=== PATIENT | female | born 1995 | race Caucasian/White ===

== ENCOUNTER 2018-12-01 11:22 | Emergency (ER) | payer MEDICAID, SELFPAY ==
--- NOTE | 2018-12-01 12:03 | NUR.NOTE ---
pt states that she developed nausea, vomiting and headache starting that has not resolved. pt has had a fever of 99.8. pt had not taken any medication to alleviate symptoms
[2018-12-01 12:05] VITALS: BP 99/72; PULSE 74; RESP 17; TEMP 37.7; O2SAT 96
--- NOTE | 2018-12-01 12:36 | ED.GENADUL_ITS ---
Discharge Plan Disposition Patient Disposition: HOME Condition: Improving Discharge Details Chief Complaint: Nausea/Vomit/Diar Clinical Impression: Vomiting, Headache Primary Care Provider: Rick Ruiz ED Provider: Oanh Herrmann Home Meds and New Rx's Prescriptions: New prochlorperazine maleate [Compazine] 10 mg tablet 10 mg PO Q8H PRN (Reason: nausea and vomiting) Qty: 6 RF: 0 Continued sertraline [Zoloft] 100 MG tablet 100 mg PO DAILY Qty: 1 RF: 0 Discharge Instructions Instructions: Acute Headache (ED), Acute Nausea and Vomiting (ED) Additional Instructions: Drink plenty of fluids and get plenty of rest. Alternate Tylenol and Motrin as needed and directed for pain. Take the Compazine as needed and directed for nausea and vomiting. Follow-up with your primary care doctor and neurologist for reevaluation. Return immediately to the emergency department any worsening or new concerning symptoms. Discharge Data Discharge Physician: Oanh Herrmann Medical Decision Making 22-year-old female with a history of migraines who presents with vomiting and headache for the past 3 days. Symptoms started with vomiting and then she developed headache with photophobia. Also with URI symptoms. No description of thunderclap headache making SAH unlikely. No complaint of fever or neck pain making meningitis less likely. Mom and patient state that she has had extensive workup for her migraines in the past including lumbar puncture and CT imaging all of which were negative. They are declining any imaging today at this time. Temp 99.8. Remainder vitals within normal limits. No focal deficits. No meningeal signs. Tenderness to palpation bilateral frontal sinuses, remainder of ENT exam within normal limits. Lungs clear to auscultation. Abdomen soft and nontender. Differential diagnosis includes influenza, gastroenteritis, viral syndrome, leading to headache associated dehydration, and possible leading to migraine. Patient states she cannot take p.o. meds due to her nausea and vomiting. Will place an IV, bolus IV fluids, Compazine, Benadryl, Toradol, urine and rapid influenza test. [id number] --rapid influenza negative. Urine test negative. Patient has been sleeping since she was given her medications and states she feels much better and is requesting to go home. She states her nausea is resolved and her headache is significantly improved. Discussed again that symptoms likely due to a GI illness leading to dehydration and subsequent headache/migraine. Discussed again that I do not think her symptoms appear c/w meningitis or any acute neurological process, and they are agreeable and do not see any indication for CT imaging at this time. We will send home with a prescription for Compazine. She is instructed to follow with the primary care doctor and neurologist for reevaluation. She is instructed to increase plenty of fluids, rest, and compazine prn for possible GI illness. Medical Records Medical records reviewed: Yes I reviewed the patient's medical records. Lab Data Lab results reviewed: Yes I reviewed the patient's lab results. Urine test negative Rapid influenza negative HPI General Mode of arrival: ambulatory . Date/Time Provider Initiated Documentation: 12/01/18 12:06 . Limitations to Documentation: no limitations . Information obtained by: patient . HPI Narrative: Patient is a 22-year-old female who presents the ED with a complaint of vomiting and headache for the past 3 days. Patient states her symptoms started first with vomiting 3 days ago occurring every 2 hours, mainly clear and bile. She states the headache started yesterday, which she states feels like tightness and like rubber bands are wrapped around my head , 06/25 and is associated with sensitivity to light. She states she has been diagnosed with migraines in the past and states her headache feels similar but more intense. She denies any known fever or neck pain but does also admit to sore throat, ear pain, coughing with green sputum, body aches. She states she did not receive the flu shot this year. She states she has not taken any medication for her symptoms because she is unable to keep anything down. Related Data Home Medications Medication Instructions Recorded Confirmed sertraline [Zoloft] 100 mg PO DAILY #1 tab-cap 05/15/14 12/01/18 prochlorperazine maleate 10 mg PO Q8H PRN #6 tab 12/01/18 [Compazine] Previous Rx's Medication Instructions Recorded prochlorperazine maleate 10 mg PO Q8H PRN #6 tab 12/01/18 [Compazine] Allergies Allergy/AdvReac Type Severity Reaction Status Date / Time No Known Allergies Allergy Unverified 12/01/18 12:08 General Stated Complaint: Nausea/Vomit/Diar OFELIA: 3 Review of Systems Review of Systems All systems reviewed & are unremarkable except as noted in HPI and below Constitutional Reports as per HPI, Denies chills, Denies fever(s) and Reports headache(s) Eyes Denies blurry vision ENT Denies dizziness, Reports headache(s), Reports nasal congestion, Reports nasal discharge, Reports sore throat and Denies throat swelling Cardiovascular Denies chest pain and Denies dyspnea Respiratory Reports cough and Denies dyspnea Gastrointestinal Denies abdominal pain, Denies diarrhea and Reports vomiting Genitourinary Denies hematuria and Denies dysuria Musculoskeletal Denies back pain and Denies numbness Integumentary/Breasts Denies lesions and Denies rash Neurologic Denies dizziness, Reports headache(s), Denies focal weakness and Denies numbness Allergic/Immunologic Denies throat swelling PFS Medical History Migraine (Chronic) Surgical History No significant past surgical history (Acute) Social History Smoking and Tabacco status: Never alcohol intake: never substance use type: marijuana Exam Const General: cooperative and healthy appearing Orientation: alert and awake HENMT Head: normal to inspection Ears: hearing grossly normal bilaterally, external ears normal and TM's normal bilaterally General nose exam: external nose normal Face and sinus: normal facial exam and sinus tenderness frontal (bilateral ) Mouth: oral mucosae normal Teeth and gingiva: dentition normal Throat: posterior oropharynx normal Eyes General: appearance normal, both eyes and all related structures Eyelids: eyelids normal Pupils: PERRL EOM: EOM intact bilaterally Neck Neck: normal visual inspection Lymphatic: no lymphadenopathy noted Chest Chest: normal inspection of the chest Resp Effort & Inspection: normal respiratory effort and able to speak in complete sentences Auscultation: clear to auscultation bilaterally Cardio Rate: regular rate Rhythm: regular rhythm GI Inspection: normal to inspection Palpation: soft, not firm, no guarding, no hepatosplenomegaly, no masses and nontender Auscultation: normal bowel sounds Skin General skin exam: no rashes or lesions noted Neuro General: alert, awake, oriented x3, moves all extremities, no meningeal signs, no focal motor deficits and CN's II-XI intact bilaterally Cognition: normal cognition Speech: speech normal Gait: normal gait Motor: muscle tone normal throughout and strength 5/5 throughout Sensory Exam: no sensory deficits noted Extrem General: normal to inspection, full ROM and normal capillary refill Psych Appearance: grossly normal Mental Status: mental status grossly normal Speech and Movement: speech and movement normal Affect: normal affect Thought Process: normal Course Vital Signs Temperature 99.8 F H 12/01/18 12:05 Pulse 74 12/01/18 12:05 Respiratory Rate 17 12/01/18 12:05 Blood Pressure 99/72 L 12/01/18 12:05 Pulse Oximetry 96 12/01/18 12:05 Temperature 99.8 F H 12/01/18 12:05 Temperature Source Oral 12/01/18 12:05 Pulse 74 12/01/18 12:05 Respiratory Rate 17 12/01/18 12:05 Respiratory Effort 12/01/18 12:07 Blood Pressure 99/72 L 12/01/18 12:05 Blood Pressure Position Sitting 12/01/18 12:05 Pulse Oximetry 96 12/01/18 12:05 Oxygen Delivery Method Room Air 12/01/18 12:05 Oxygen Flow Rate 0 12/01/18 12:05 Pain Level 10 12/01/18 12:05
[2018-12-01] MEDS: diphenhydrAMINE 50 MG/ML VIAL 25 MG IVP (12:47)
[2018-12-01] MEDS: Ketorolac 30 MG/ML VIAL IVP (12:47)
[2018-12-01] MEDS: Normal Saline 1,000 ML 1000 ML IV (12:48)
[2018-12-01] MEDS: Prochlorperazine 10 MG/2 ML VIAL IVP (12:48)
[2018-12-01 15:17] VITALS: BP 105/85; PULSE 76; RESP 18; TEMP 37; O2SAT 97
[2018-12-01 15:24] VITALS: BP 105/85; PULSE 76; RESP 18; TEMP 37; O2SAT 97
== END 2018-12-01 15:33 | disposition home or self-care (01) ==
PROVIDERS: Emergency Provider Physician Assistant; PCP Pediatrics
DX: R11.10 Vomiting, unspecified (principal); R51 Headache
CPT/HCPCS: 81025; 87449; 96361; 96374; 96375; 99284; J0780; J1200; J1885

== ENCOUNTER 2020-11-18 10:24 | Emergency (ER) | payer MEDICAID, SELFPAY ==
[2020-11-18 10:29] VITALS: BP 125/63; PULSE 70; RESP 20; TEMP 36.3; O2SAT 98
--- NOTE | 2020-11-18 10:30 | ED.GENADUL_ITS ---
Discharge Plan Disposition Patient Disposition: HOME Condition: Stable Discharge Details Clinical Impression: Bruising of wrist Primary Care Provider: Rick Ruiz ED Provider: Hasmukh Hicks Home Meds and New Rx's Prescriptions: Continued sertraline [Zoloft] 100 MG tablet 100 mg PO DAILY Qty: 1 RF: 0 Nexplanon 68 mg Implant 1 implant SUBDERMAL ONCE RF: 0 Discharge Instructions Instructions: Contusion in Adults (ED), Hematoma (ED) Additional Instructions: Examination is most consistent with bruising. Ultrasound and laboratory values do not reveal any obvious emergent process. Please watch for new or worsening symptoms and return to the ER for any concerns. [id number] Tylenol and/or Motrin as directed for discomfort. Cool compresses as tolerated. Medical Decision Making 24-year-old [id number]-[id number] female presents with atraumatic left wrist and forearm swelling, discomfort, ecchymosis. Clinically she appears well, nontoxic. Clinically I believe this to be a contusion, likely mild trauma that was unnoticed. Given she denies any bleeding from her gums, petechiae rashes, heavy menses, etc. highly unlikely hematological disorder. Given there is no t rauma, no bony point tenderness, no clear indication for x-ray imaging. Given her family history of DVT and her atypical presentation I do believe obtaining ultrasound, CBC, CMP and coags is reasonable but I do have a low suspicion they will be abnormal. Laboratory values unremarkable for obvious emergent process. Ultrasound of left upper extremity unremarkable for DVT. Discussed findings with patient. She is relieved. Has no additional questions or concerns and is comfortable discharge. Medical Records Medical records reviewed: Yes I reviewed the patient's medical records. Lab Data Lab results reviewed: Yes I reviewed the patient's lab results. Lab results narrative: Laboratory Tests Range/Units 11/18/20 11/18/20 11/18/20 11:11 11:11 11:11 WBC (4.4-10.8) 10^3/uL 6.49 RBC (3.93-5.22) 10^6/uL 3.69 L Hgb (11.2-15.7) g/dL 10.9 L Hct (36.0-46.0) % 33.5 L MCV (80-95) fL 90.8 MCH (27.0-33.0) pg 29.5 MCHC (32.0-36.0) % 32.5 RDW (11.7-14.6) % 13.6 Plt Count (130-400) 10^3/uL 273 MPV (8.0-11.0) fL 9.7 Immature Gran % 0.2 Neutrophils % 60.1 Lymphocytes % 34.4 Monocytes % 4.0 Eosinophils % 0.8 Basophils % 0.5 Nucleated RBC % % 0 Absolute Neutrophils (1.2-6.7) 10^3/uL 3.91 Absolute Lymphocytes (1.2-3.4) 10^3/uL 2.23 Absolute Monocytes (0.1-0.8) 10^3/uL 0.26 Absolute Eosinophils (0.0-0.7) 10^3/uL 0.05 Absolute Basophils (0.0-0.2) 10^3/uL 0.03 PT (9.3-11.0) sec 10.2 INR (0.9-1.1) 1.0 APTT (21.0-27.5) sec 25.1 Sodium (136-145) mmol/L 139 Potassium (3.5-5.1) mmol/L 3.9 Chloride (98-107) mmol/L 104 Carbon Dioxide (21.0-32.0) mmol/L 26.1 Anion Gap (3-11) mmol/L 8.9 BUN (7-18) mg/dL 12 Creatinine (0.55-1.02) mg/dL 0.6 Estimated GFR/1.73 m2 (mL/min/1.73m2) >= 60.00 Glucose (74-106) mg/dL 116 H Calcium (8.5-10.1) mg/dL 8.6 Total Bilirubin (0.2-1.0) mg/dL 0.3 AST (15-37) U/L 17 ALT (14-59) U/L 22 Alkaline Phosphatase (46-116) U/L 42 L Total Protein (6.4-8.2) g/dL 7.9 Albumin (3.4-5.0) g/dL 3.9 HPI General Mode of arrival: ambulatory . Date/Time Provider Initiated Documentation: 11/18/20 10:30 . Limitations to Documentation: no limitations . Information obtained by: patient . HPI Narrative: This is a 24-year-old female, vczus-vyyc-[id number], does have a Nexplanon subdermal implant. 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 The past 24 hours she noticed a bruise that is slightly swollen and tender to the left wrist and subsequently the bruising has spread up her arm. She denies any numbness, tingling, weakness. She denies easy bruising or bleeding. Denies irregular menstrual cycles. Denies gum bleeding when she brushes her teeth. She tells me that she assumes this is just a bruise but she has a positive family history of DVT and her family recommended coming to the ER. Related Data Home Medications Medication Instructions Recorded Confirmed sertraline [Zoloft] 100 mg PO DAILY #1 tab-cap 05/15/14 11/18/20 Nexplanon 1 implant SUBDERMAL ONCE 11/18/20 11/18/20 Allergies Allergy/AdvReac Type Severity Reaction Status Date / Time No Known Allergies Allergy Unverified 11/18/20 10:32 General OFELIA: 3 Review of Systems Constitutional Constitutional: Denies fever(s) and Denies weakness Cardiovascular Cardiovascular: Denies chest pain and Denies dyspnea Respiratory Respiratory: Denies dyspnea Musculoskeletal Musculoskeletal: Denies arthralgias, Denies numbness, Reports stiffness and Denies tingling Integumentary/Breasts Skin/Breast: Denies erythema Neurologic Neurologic: Denies numbness, Denies tingling and Denies weakness Hematologic/Lymphatic Hematologic/Lymphatic: Denies easy bleeding and Denies easy bruising [facility] Medical History Migraine Surgical History No significant past surgical history Social History Smoking/Tobacco Use Status: Never Smoking risk assessment performed?: Yes Alcohol Intake: never Drug use: Occasionally Substance use type: marijuana Do you feel safe at home: Yes Do you feel safe in your relationship?: Yes Exam Const General: cooperative, healthy appearing, comfortable and no acute distress Orientation: alert and awake [facility] Head: normal to inspection, normocephalic and atraumatic Eyes General: appearance normal, both eyes and all related structures Conjunctivae: conjunctivae normal Sclera: sclerae normal Neck Neck: normal visual inspection, full ROM, no meningeal signs, trachea midline and supple Resp Effort & Inspection: normal respiratory effort and able to speak in complete sentences Auscultation: clear to auscultation bilaterally Cardio Rate: regular rate Rhythm: regular rhythm Skin General skin exam: no rashes or lesions noted Neuro General: patient alert, patient awake, moves all extremities and no focal motor deficits Cognition: normal cognition Speech: speech normal Sensory Exam: no sensory deficits noted Extrem General: full ROM and capillary refill normal Left upper extremity: full ROM, normal capillary refill, shoulder/upper arm Details: inspection abnormal, axillary nerve sensory function normal and normal ROM; no tenderness and no swelling, elbow/forearm Details: tenderness, swelling, normal ROM, ecchymosis and distal pulses intact, wrist Details: tenderness, swelling, normal ROM, ecchymosis, normal vascular exam, radial pulse present and ulnar pulse present; no unusual warmth and hand Details: normal to inspection, normal capillary refill, neuromotor exam normal, neurosensory exam normal, tendon exam normal, vascular exam, normal ROM of fingers and no swelling; no tenderness and no ecchymosis Elbow/forearm/wrist images: 1. Diffuse mild swelling and ecchymosis. Skin is intact. Neuro, vascular, tendon intact. 2. An area of vertical darker ecchymosis. Without warmth. No tenderness. Simply an atypical pattern of ecchymosis. 3. An area of vertical darker ecchymosis. Without warmth. No tenderness. Simply an atypical pattern of ecchymosis. Psych Appearance: grossly normal Mental Status: mental status grossly normal
--- NOTE | 2020-11-18 10:45 | DI.US_ITS ---
EXAM: US UPPER EXTREMITY VENOUS LT CLINICAL HISTORY: Atraumatic bruising/pain/swelling, family hxDVT. TECHNIQUE: Ultrasound examination of the left upper extremity venous system(s) is performed using gr ayscale, color-flow, and spectral Doppler analysis. COMPARISON: No exams were available for comparison FINDINGS: The left internal jugular, axillary, subclavian, cephalic, basilic, brachial, radial, and ulnar veins are patent without evidence of thrombosis. There is edema seen in the soft tissues of the anterior left wrist corresponding to the area of bruising. Veins in the region show compression. IMPRESSION: No evidence of a left upper extremity DVT. DATA REPOSITORY:
[2020-11-18 11:27] LABS: Abs Immature Grans 0.01 10^3/uL (0.0-0.06); Absolute Basophil Count 0.03 10^3/uL (0.0-0.2); Absolute Eosinophil Count 0.05 10^3/uL (0.0-0.7); Absolute Lymphocyte Count 2.23 10^3/uL (1.2-3.4); Absolute Monocyte Count 0.26 10^3/uL (0.1-0.8); Absolute Neutrophil Count 3.91 10^3/uL (1.2-6.7); Basophils % 0.5; Eosinophils % 0.8; HCT 33.5 % (36.0-46.0); HGB 10.9 g/dL (11.2-15.7); Immature Grans % 0.2; Lymphocytes % 34.4; MCH 29.5 pg (27.0-33.0); MCHC 32.5 % (32.0-36.0); MCV 90.8 fL (80-95); MPV 9.7 fL (8.0-11.0); Neutrophils % 60.1; Nucleated RBC 0 %; Platelet Count 273 10^3/uL (130-400); RBC 3.69 10^6/uL (3.93-5.22); RDW 13.6 % (11.7-14.6); RDW-SD 46.2 fL; WBC 6.49 10^3/uL (4.4-10.8)
[2020-11-18 11:40] LABS: PTT Activated 25.1 sec (21.0-27.5); Prothrombin Time 10.2 sec (9.3-11.0)
[2020-11-18 11:59] LABS: ALT 22 U/L (14-59); AST 17 U/L (15-37); Albumin 3.9 g/dL (3.4-5.0); Alkaline Phosphatase 42 U/L (46-116); Anion Gap 8.9 mmol/L (3-11); BUN 12 mg/dL (7-18); Bilirubin, Total 0.3 mg/dL (0.2-1.0); CO2 26.1 mmol/L (21.0-32.0); CREATININE 0.6 mg/dL (0.55-1.02); Calcium 8.6 mg/dL (8.5-10.1); Chloride 104 mmol/L (98-107); Glucose 116 mg/dL (74-106); Potassium 3.9 mmol/L (3.5-5.1); Sodium 139 mmol/L (136-145); Total Protein 7.9 g/dL (6.4-8.2)
== END 2020-11-18 13:00 | disposition home or self-care (01) ==
PROVIDERS: Emergency Provider Physician Assistant; PCP Pediatrics
DX: S60.212A Contusion of left wrist, initial encounter (principal); X58.XXXA Exposure to other specified factors, initial encounter
CPT/HCPCS: 36415; 80053; 99284; 85025; 85610; 85730; 93971; 99283

== ENCOUNTER 2021-02-20 11:34 | Emergency (ER) | payer MEDICAID, SELFPAY ==
[2021-02-20 11:39] VITALS: BP 111/88; PULSE 73; RESP 18; TEMP 36.7; O2SAT 99
--- NOTE | 2021-02-20 11:51 | W.ED.GENAD ---
Discharge Plan Disposition Patient Disposition: HOME Condition: Good Discharge Details Clinical Impression: Injury of knee, left, Grade 1 injury of medial collateral ligament of left knee Primary Care Provider: Rick Ruiz ED Provider: Wilton Delaney Home Meds and New Rx's Prescriptions: Continued sertraline [Zoloft] 100 MG tablet 100 mg PO DAILY Qty: 1 RF: 0 Nexplanon 68 mg Implant 1 implant SUBDERMAL ONCE RF: 0 Discharge Instructions Instructions: Knee Sprain (ED), Hinged Knee Brace (ED) Additional Instructions: At this time your exam is very concerning for a medial collateral ligament injury. Please use the hinged knee brace at all times until you are reassessed by the workforce specialist. Take Tylenol, Motrin and ice as needed for pain. Remain nonweightbearing on your knee is much as possible with your crutches until you are reassessed by the workforce specialist. We have placed a referral with the orthopedic doctor, please follow-up with him when they contact you for an appointment time. If you notice any worsening of your symptoms, or any new symptoms such as vomiting, diarrhea, fever, chills, shortness of breath, chest pain, numbness, weakness, or fainting , please return immediately to the emergency department for reevaluation. As always, it was a pleasure participating in your medical care today. Referrals: Dakota Davis MD [ [facility] STAFF PHYSICIAN] - Chong Granados MD [ [facility] STAFF PHYSICIAN] - Medical Decision Making This is a pleasant 25-year-old female on Zoloft and Nexplanon who presents today for evaluation of left knee pain. 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 She is able to bear weight with mild to moderate pain, but has had a notable limp. She has taken Tylenol and Motrin without improvement. Aside for pain in the medial aspect of her knee she has no other complaints. She denies calf or femur pain, numbness or tingling, or any other complaints Physical exam demonstrates notable laxity on valgus stressing for the left knee in both straight leg and 25 degrees of flexion. On exam anterior and posterior drawer test at this time demonstrate no significant appreciable laxity. Varus stressing shows no laxity. Minimal tenderness over the medial aspect of the tibial plateau, but I suspect this is more so from tendon injury as it currently does not appear consistent with a tibial plateau fracture. We will get radiographs. Patient is notably active in general, she would much prefer a hinged knee brace over a knee immobilizer, I do feel that this is reasonable based on the current injury pattern that is clinically evident. 12:38 PM X-ray results per virtual radiology are negative for acute process. No evidence of fracture. Patient tolerates a hinged knee brace and crutches well. I had a long discussion with the patient about the importance of massage of the calf, regular movement and elevation to prevent DVT and blood clot. We went over these risk factors. Discussed the importance of close follow-up with the workforce specialist. Discussed red flags which to return including the importance of use of ice, Jama wrap, and elevation and Tylenol or Motrin. I have extensively reviewed the treatment plan and discharge instructions with the patient. I have addressed all patient concerns at this time. The patient was made aware of what symptoms to monitor for that would warrant a return to the emergency department. Discussed the plan with the patient, they demonstrate verbal understanding and agreement with our assessment and plan at this time. The documentation in this chart was dictated using [employer] dictation software. Please excuse any dictation errors. FINDINGS: Bones/joints: Normal. Soft tissues: Normal. IMPRESSION: No significant abnormality. Thank you for allowing us to participate in the care of your patient. Dictated and Authenticated by: Misael Lama MD 02/20/2021 12:27 PM Eastern Time ([place] & [place]) HPI General Date/Time Provider Initiated Documentation: 02/20/21 11:35. HPI Narrative: This is a pleasant 25-year-old female on Zoloft and Nexplanon who presents today for evaluation of left knee pain. 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 She is able to bear weight with mild to moderate pain, but has had a notable limp. She has taken Tylenol and Motrin without improvement. Aside for pain in the medial aspect of her knee she has no other complaints. She denies calf or femur pain, numbness or tingling, or any other complaints Related Data Home Medications Medication Instructions Recorded Confirmed sertraline [Zoloft] 100 mg PO DAILY #1 tab-cap 05/15/14 02/20/21 Nexplanon 1 implant SUBDERMAL ONCE 11/18/20 02/20/21 Allergies Allergy/AdvReac Type Severity Reaction Status Date / Time No Known Allergies Allergy Unverified 02/20/21 11:45 General Stated Complaint: Orthopedic OFELIA: 4 Review of Systems All systems reviewed & are unremarkable except as noted in HPI and below PFSH Medical History Migraine Surgical History No significant past surgical history Social History Smoking/Tobacco Use Status: Never Smoking risk assessment performed?: Yes Alcohol Intake: never Drug use: Occasionally Substance use type: marijuana Do you feel safe at home: Yes Do you feel safe in your relationship?: Yes Exam Narrative Exam Narrative: 1.Const: Well-nourished, Well-developed, appearing stated age 2.Eyes: PERRL, no conjunctival injection, and symmetrical lids. 3.ENT: Atraumatic external nose and ears. Moist MM. Neck: Symmetric, trachea midline, No thyromegaly. 4.CVS: +S1/S2, No murmurs or gallops. Peripheral pulses 2+ and equal in all extremities. Brisk capillary refill in all extremities. 5.RESP: Unlabored respiratory effort. Clear to auscultation bilaterally. No wheezes rales or rhonchi 6.GI: Soft, Nontender/Nondistended, No hepatosplenomegaly. No guarding or rebound. 7.MSK: The knee is stable to varus stressing, and notably unstable to valgus stressing for both straight leg and for 25 degrees of flexion. There appears to be notable laxity in comparison right knee. Mild bruising at the medial aspect of the left knee. Patellar grind test is negative. Glo test is positive for pain at the medial aspect albeit mild. Mild edema on the medial aspect of the. No ttp to the patella, or fibular head, minimal tenderness over the medial aspect of the tibial plateau, but not severe otherwise. Patient seems to demonstrate no significant laxity for anterior posterior drawer testing at this time. Distal exam demonstrates good capillary refill, good sensation, good dorsalis pedis and posterior tibial pulse/forced tube. No tenderness over the tibia or fibula, no tenderness over the femur 8.Skin: Warm, Dry. No rashes or lesions. 9.Neuro: center human resources manager II-XII grossly intact. Sensation grossly intact, no focal neurologic deficits. 10.Psych: (AAO) x3. Appropriate mood and affect Course Vital Signs Vital signs: Vital Signs Temperature 36.7 C 02/20/21 11:39 Pulse 73 02/20/21 11:39 Respiratory Rate 18 02/20/21 11:39 Blood Pressure 111/88 02/20/21 11:39 Pulse Oximetry 99 02/20/21 11:39 Temperature 36.7 C 02/20/21 11:39 Temperature Source Temporal Artery Scan 02/20/21 11:39 Pulse 73 02/20/21 11:39 Respiratory Rate 18 02/20/21 11:39 Respiratory Effort Non-Labored 02/20/21 11:46 Blood Pressure 111/88 02/20/21 11:39 Pulse Oximetry 99 02/20/21 11:39 Oxygen Delivery Method Room Air 02/20/21 11:39 Oxygen Flow Rate 0 02/20/21 11:39 Pain Level 7 02/20/21 11:39
--- NOTE | 2021-02-20 11:54 | NUR.NOTE ---
Nursing Note: Per Dr. Delaney, ok not to do POC test due patient being on control and states she is sure she is not if patient is shielded.
--- NOTE | 2021-02-20 12:05 | DI.RAD_ITS ---
Exam(s) XR KNEE LT 3V AP,LAT,JESS EXAM: XR KNEE LT 3V AP,LAT,JESS CLINICAL HISTORY: medial knee pain, suspect severe mcl injury. TECHNIQUE: 2D digital imaging was performed. COMPARISON: CR LEFT KNEE 3 VIEW COMPLETE from 07/26/2013 FINDINGS: There is no evidence of fracture or prominent joint effusion. No obvious degenerative changes nor os seous lesions. Bone density is normal. IMPRESSION: DATA REPOSITORY: RADIATION DOSE DELIVERED:
--- NOTE | 2021-02-20 12:29 | DI.VRAD_ITS ---
PROCEDURE INFORMATION: Exam: XR Left Knee Exam date and time: 02/20/2021 11:58 AM Age: 25 years old Clinical indication: Injury or trauma; Sprain or strain; Patella or knee; Injury date: 02/20/21; Injury details: Twisting injury of left knee today, patient non weight bearing, severe medial left knee pain. No previous knee surgeries. TECHNIQUE: Imaging protocol: XR Left knee. Views: 3 views. COMPARISON: No relevant prior studies available. FINDINGS: Bones/joints: Normal. Soft tissues: Normal. IMPRESSION: No significant abnormality. Dictated and Authenticated by: Misael Lama MD. Ordering:LUIS ENRIQUE Núñez MD
== END 2021-02-20 12:41 | disposition home or self-care (01) ==
PROVIDERS: Emergency Provider Student in an Organized Health Care Education/Training Program; PCP Pediatrics
DX: S89.82XA Other specified injuries of left lower leg, initial encounter (principal); W17.2XXA Fall into hole, initial encounter; Y92.73 Farm field as the place of occurrence of the external cause
CPT/HCPCS: 29505; 73562; 99283

== ENCOUNTER 2021-02-23 13:38 | Outpatient (CLI) | payer MEDICAID, SELFPAY ==
--- NOTE | 2021-02-23 13:30 | DI.RAD_ITS ---
Exam(s) XR KNEE LT 1V EXAM: XR KNEE LT 1V CLINICAL HISTORY: left knee pain TECHNIQUE: COMPARISON: CR,XR XR KNEE LT 3V AP,LAT,JESS from 02/20/2021 FINDINGS: Single Merchant view was obtained and shows normal patellar alignment and no bony abnormality. Carti laginous joint space of patellofemoral joint is well maintained. IMPRESSION: RADIATION DOSE DELIVERED: Total DLP
== END 2021-02-23 13:39 | disposition home or self-care (01) ==
LOC: DIORS 13:39
PROVIDERS: PCP Nurse Practitioner; Referring Provider Nurse Practitioner; Visit Provider Student in an Organized Health Care Education/Training Program
DX: M25.562 Pain in left knee (principal); S89.82XA Other specified injuries of left lower leg, initial encounter
CPT/HCPCS: 73560

== ENCOUNTER 2021-03-01 21:02 | Emergency (ER) | payer MEDICAID, SELFPAY ==
--- NOTE | 2021-03-01 21:04 | ED.GENADUL_ITS ---
Discharge Plan Disposition Patient Disposition: HOME Condition: Improving Discharge Details Clinical Impression: Nausea vomiting and diarrhea, Hypokalemia, Hypomagnesemia, Leukocytosis Primary Care Provider: Mary Vizcarra ED Provider: Ivone Hawley Home Meds and New Rx's Prescriptions: Continued sertraline [Zoloft] 100 MG tablet 100 mg PO DAILY Qty: 1 RF: 0 Nexplanon 68 mg Implant 1 implant SUBDERMAL ONCE RF: 0 Discharge Instructions Instructions: Ondansetron (By mouth), Capsaicin (On the skin), Acute Nausea and Vomiting (ED) Additional Instructions: Please encourage frequent sips of fluids to maintain hydration. You may use Zofran as scribed to help with any recurrence of her nausea. Please allow tablet to dissolve under your tongue, you may use 1 every 6 hours as needed. You may use the capsaicin cream on your abdomen 3-4 times per day. Please call your primary care tomorrow to schedule appointment this week for reevaluation. If you develop fever/chills, increased abdominal pain, inability stay hydrated or other new/worsening symptoms to seek care urgently once again. You may advance your diet as tolerated. Please begin with bland diet such as bananas, rice, applesauce, toast. This may have been associated with your marijuana usage, please consider cessation. Referrals: Mary Vizcarra [Primary Care Provider] - Medical Decision Making Patient is a pleasant 25-year-old female presenting today with chief complaint of abdominal cramping, nausea, vomiting and diarrhea. She reports that all symptoms began promptly at 4:00. States that she has had approximately 10 episodes of diarrhea since onset. No recent antibiotics. Reports that she had several episodes of emesis. She denies any hematemesis, melena or bright red blood per rectum. Has had no fevers or chills. No chest pain or shortness of breath. No previous abdominal surgeries. She has not had symptoms like this historically. Patient reports that she does smoke a lot of weed every day. Has never had cyclical vomiting historically. Patient has Nexplanon. Does not routinely have her menses. She denies any dysuria, increased frequency or urgency. She denies any vaginal discharge On exam, patient appears uncomfortable and anxious. She is hemodynamically stable and appears nontoxic. Lungs are clear, normal cardiac exam. ABdomen is benign. She indicates diffuse pain but none elicited with palpation, no peritoneal findings. Plan for hydration, will give Zofran for nausea. Considered infectious etiology. She denies food source. Also considered viral source, vomiting associated with large quantities of marijuana intake. Exam is not consistent with surgical abdomen. REevaluated the patient. Nausea is better but still present. [facility] continues to endorse cramping. Was sleeping when I went into the room. Will apply capsaicin cream. Labs reviewed. Significant for white count of 16.3. Potassium slightly low at 3.4, magnesium slightly low at 1.7, will replenish both of these I am concerned for further loss. Urinalysis. Positive ketones and protein. No indication of infection. UPT negative. Discussed these findings with the patient. Patient is feeling improved after capsaicin cream. Is no longer endorsing her cramping sensation. Denies any nausea at this time. She did have 1 episode of emesis while being here which resulted in a few tablespoons of liquid. Her symptoms are controlled currently with Zofran. We will continue this. Do not feel that imaging is warranted at this time based on patient history and clinical exam. I did encourage cessation of marijuana. Advised that this could be associated with marijuana intake, alternatively could be associated with viral illness or p.o. intake. She has not had any episodes of diarrhea since being here. Encourage close follow-up with primary care. She will call tomorrow to schedule follow-up appointment. Strict return precautions were discussed. Patient sent home with ODT Zofran. Also sent home with remaining capsaicin cream. All of her questions and burt rns were addressed and she is in agreement this plan. HPI General Mode of arrival: wheelchair . Date/Time Provider Initiated Documentation: 03/01/21 21:04 . Limitations to Documentation: no limitations . Information obtained by: patient and RN notes reviewed . History of Present Illness 25 year old F presents to the emergency department with the chief complaint of abdominal cramping, N/V/D, described as severe, with intensity rated at 8. Quality is described as other (cramping), and is localized to the abdomen. Patient reports no radiation. Patient started experiencing this hour(s) (1600) and it has been constant. No relieving factors improve symptom(s), No exacerbating factors reported . Patient notes loss of appetite and nausea/vomiting; denies chest pain, cough, fever/chills, shortness of breath and weakness. Patient did receive the following treatments prior to arrival, none Related Data Home Medications Medication Instructions Recorded Confirmed sertraline [Zoloft] 100 mg PO DAILY #1 tab-cap 05/15/14 03/01/21 Nexplanon 1 implant SUBDERMAL ONCE 11/18/20 03/01/21 Allergies Allergy/AdvReac Type Severity Reaction Status Date / Time No Known Allergies Allergy Unverified 03/01/21 21:13 General OFELIA: 4 Review of Systems Constitutional Constitutional: Reports as per HPI, Denies chills, Denies fatigue, Denies fever(s) and Denies headache(s) ENT Ears, Nose, Mouth, and Throat: Denies headache(s) Cardiovascular Cardiovascular: Reports as per HPI, Denies chest pain and Denies dyspnea Respiratory Respiratory: Reports as per HPI, Denies cough and Denies dyspnea Gastrointestinal Gastrointestinal: Reports as per HPI Musculoskeletal Musculoskeletal: Reports as per HPI and Denies back pain Integumentary/Breasts Skin/Breast: Reports as per HPI and Denies rash Neurologic Neurologic: Reports as per HPI and Denies headache(s) Endocrine Endocrine: Denies fatigue PFSH Medical History Migraine Surgical History No significant past surgical history Social History Smoking/Tobacco Use Status: Never Smoking risk assessment performed?: Yes Alcohol Intake: never Drug use: Occasionally Substance use type: marijuana Current gender identity: female Do you feel safe at home: Yes Do you feel safe in your relationship?: Yes Exam Const General: cooperative, healthy appearing, comfortable, no acute distress and well developed Nutritional Appearance: average body habitus and well nourished Orientation: alert and awake [facility] Head: normal to inspection Mouth: mucous membranes dry (appears dry) Resp Effort & Inspection: normal respiratory effort, able to speak in complete sentences and no respiratory distress Auscultation: clear to auscultation bilaterally, no rales, no rhonchi and no wheezes Cardio Rate: regular rate Rhythm: regular rhythm Heart Sounds: S1 normal and S2 normal GI Inspection: normal to inspection Palpation: soft, no hepatosplenomegaly, not firm, no guarding, not rigid, nontender and No ascites Percussion: normal to percussion Auscultation: normal bowel sounds Back/Spine/Pelvis Back: no CVA tenderness Skin General skin exam: no rashes or lesions noted Trauma: no lacerations or abrasions Neuro General: patient alert and patient awake Cognition: normal cognition Speech: speech normal Gait: normal gait Psych Appearance: grossly normal and well kempt Mental Status: mental status grossly normal Speech and Movement: speech and movement normal
[2021-03-01 21:09] VITALS: BP 131/79; PULSE 55; RESP 18; TEMP 36.4; O2SAT 100
[2021-03-01 21:30] LABS: Abs Immature Grans 0.08 10^3/uL (0.0-0.06); Absolute Eosinophil Count 0.02 10^3/uL (0.0-0.7); Absolute Lymphocyte Count 1.24 10^3/uL (1.2-3.4); Absolute Neutrophil Count 14.28 10^3/uL (1.2-6.7); Basophils % 0.2; Eosinophils % 0.1; HCT 35.1 % (36.0-46.0); HGB 11.7 g/dL (11.2-15.7); Immature Grans % 0.5; Lymphocytes % 7.6; MCH 29.7 pg (27.0-33.0); MCHC 33.3 % (32.0-36.0); MCV 89.1 fL (80-95); MPV 9.8 fL (8.0-11.0); Monocytes % 4.2; Neutrophils % 87.4; Nucleated RBC 0 %; Platelet Count 277 10^3/uL (130-400); RBC 3.94 10^6/uL (3.93-5.22); RDW 13.2 % (11.7-14.6); RDW-SD 43.4 fL; WBC 16.34 10^3/uL (4.4-10.8)
[2021-03-01 21:31] LABS: Absolute Basophil Count 0.03 10^3/uL (0.0-0.2); Absolute Monocyte Count 0.69 10^3/uL (0.1-0.8)
[2021-03-01] MEDS: Lactated Ringers 1,000 ML 1000 ML IV ×2 (21:31→22:07)
[2021-03-01] MEDS: Ondansetron 4 MG/2 ML VIAL IVP (21:31)
[2021-03-01 21:39] LABS: ALT 23 U/L (14-59); AST 20 U/L (15-37); Albumin 4.2 g/dL (3.4-5.0); Alkaline Phosphatase 49 U/L (46-116); Anion Gap 10.9 mmol/L (3-11); BUN 17 mg/dL (7-18); Bilirubin, Total 0.4 mg/dL (0.2-1.0); CO2 25.1 mmol/L (21.0-32.0); CREATININE 0.8 mg/dL (0.55-1.02); Calcium 8.8 mg/dL (8.5-10.1); Chloride 106 mmol/L (98-107); Glucose 159 mg/dL (74-106); Lipase 51 U/L (73-393); Magnesium 1.7 mg/dL (1.8-2.4); Potassium 3.4 mmol/L (3.5-5.1); Sodium 142 mmol/L (136-145); Total Protein 8.2 g/dL (6.4-8.2)
[2021-03-01 21:41] LABS: Bilirubin Negative (Negative); Blood Negative (Negative); Clarity Clear (Clear); Glucose Negative (Negative); Ketones 80 mg/dL (Negative); Leukocyte Esterase Negative (Negative); Nitrite Negative (Negative); Specific Gravity 1.025 (1.005-1.025); Urobilinogen 0.2 EU/dL (Up TO 0.2)
[2021-03-01 21:42] LABS: Bacteria Negative HPF (Negative); C & S Indicated? No; Casts Negative LPF (Negative); Crystals Rare Amorphous HPF (Negative); Epithelial Cells Negative HPF (Negative); Mucus Trace (Negative); Other Cells Negative (Negative); RBC 0-2 HPF (0-2); WBC 0-2 HPF (0-5)
[2021-03-01] MEDS: POTASSIUM CHLORIDE 10 MEQ/100 ML BAG 100 MEQ IVPB (22:07)
[2021-03-01] MEDS: MAGNESIUM SULFATE 1 GM/100 ML BAG IVPB (22:07)
[2021-03-01 23:35] VITALS: BP 131/79; PULSE 55; RESP 18; TEMP 36.4; O2SAT 100
== END 2021-03-01 23:35 | disposition home or self-care (01) ==
PROVIDERS: Emergency Provider Physician Assistant; PCP Nurse Practitioner
DX: R11.2 Nausea with vomiting, unspecified (principal); R19.7 Diarrhea, unspecified; E87.6 Hypokalemia; E83.42 Hypomagnesemia; D72.829 Elevated white blood cell count, unspecified
CPT/HCPCS: 36415; 80053; 81025; 83690; 96361; 96365; 96368; 96375; 99284; 81003; 81015; 83735; 85025; J2405; J3475; J3480

== ENCOUNTER 2021-03-12 03:10 | Outpatient (CLI) | payer MEDICAID, SELFPAY ==
--- NOTE | 2021-03-12 11:50 | DI.MRI_ITS ---
Exam(s) MR LOWER JOINT LT WO EXAM: MR LOWER JOINT LT WO CLINICAL HISTORY: LEFT KNEE INJURY, PAIN,S89.92XA,S83.412A TECHNIQUE: Multiplanar multisequence MRI was performed.. COMPARISON: CR,XR XR KNEE LT 3V AP,LAT,JESS from 02/20/2021 CR XR KNEE LT 1V from 02/23/2021 FINDINGS: MR examination of the knee was performed according to the usual protocol. There is a moderate significant knee joint effusion. There is marked signal abnormality in the distal femoral metaphysis laterally consistent with bony tr abecular injury. No definite fracture seen. No additional significant bony signal abnormality ident ified. Medial tibiofemoral joint: The articular cartilage of the femur and tibia appears well maintained. T he meniscus and attachments appear intact. The medial collateral ligament is torn, the tear appears to involve both superficial and deep fibers. There is an associated tear of the posterior aspect of the medial patellar retinaculum. No posteromedial corner injury seen. Lateral tibiofemoral joint: The articular cartilage of the femur and tibia appears well maintained. The meniscus and attachments appear intact. The lateral collateral ligament complex and posterolater al corner structures appear intact. Patellofemoral joint and extensor mechanism: The articular cartilage of the patellofemoral joint appe ars intact. The superior and inferior patellar fat pads appear normal with no signal abnormality. The quadriceps tendon and patellar tendon appear intact with no evidence of a tear or significant kiley ma. There is probable tear of the posterior aspect of the medial patellar retinaculum. The lateral re tinaculum appears intact. Cruciate ligaments: Cruciate ligaments and attachments appear normal with no evidence of a tear. Tibiofibular joint: No specific abnormality involving the tibiofibular joint. IMPRESSION: Medial collateral ligament tear involving both superficial and deep fibers, associated medial retinac ular attachment tear, bony trabecular injury distal femoral metaphysis laterally. No meniscal or cru ciate ligament tear. DATA REPOSITORY:
== END 2021-03-12 03:30 ==
PROVIDERS: PCP Nurse Practitioner; Visit Provider Student in an Organized Health Care Education/Training Program
DX: M25.562 Pain in left knee (principal); S89.82XA Other specified injuries of left lower leg, initial encounter; S83.412A Sprain of medial collateral ligament of left knee, initial encounter
CPT/HCPCS: 73721